=== PATIENT | male | born 1980 | race Caucasian/White ===

== ENCOUNTER 2022-02-09 20:27 | Emergency (ER) | payer OTHER ==
[~2022-02-09] VITALS: Ht 175.3 cm; Wt 120.7 kg
== END 2022-02-09 23:02 | disposition home or self-care (01) ==
LOC: ER 20:27
DX: S61.217A Laceration without foreign body of left little finger without damage to nail, initial encounter (principal); S61.032A Puncture wound without foreign body of left thumb without damage to nail, initial encounter; W26.0XXA Contact with knife, initial encounter
CPT/HCPCS: 29130; 64450; 99282-25